=== PATIENT | female | born 1955 | race Caucasian/White ===

== ENCOUNTER 2024-08-14 20:21 | Emergency (ER) | payer MEDICARE | END 2024-08-15 00:52 | disposition home or self-care (01) | LOC: ERS 20:21 | DX: K83.8 Other specified diseases of biliary tract (principal); K76.89 Other specified diseases of liver; K76.9 Liver disease, unspecified; Z87.891 Personal history of nicotine dependence | CPT/HCPCS: 76705; 93005 ==

== ENCOUNTER → 2024-08-19 | Outpatient (CLI) | payer MEDICARE | LOC: NM 11:48 | PROVIDERS: ATTEND Nurse Practitioner Family | DX: R10.11 Right upper quadrant pain (principal); K83.9 Disease of biliary tract, unspecified; R19.8 Other specified symptoms and signs involving the digestive system and abdomen | CPT/HCPCS: 78227; A9537 ==